=== PATIENT | male | born 1950 | race Caucasian/White ===

== ENCOUNTER 2023-09-20 21:38 | Emergency (ER) | payer OTHER, BC ==
[~2023-09-20] VITALS: Ht 182.9 cm; Wt 115.7 kg
[2023-09-20 21:40] VITALS: BP 170/73; PULSE 77; RESP 16; TEMP 98.1; O2SAT 98
[2023-09-20] MEDS ORDERED: LIDOCAINE/EPI MPF 2%1:200000 10 ML VIAL INJ ONE (21:59)
[2023-09-20] MEDS: LIDOCAINE 2% 1000 MG/50 ML VIAL INJ ONE (22:12)
[2023-09-20 23:12] VITALS: BP 136/71; PULSE 71; RESP 18; TEMP 97.8; O2SAT 98
== END 2023-09-20 23:12 | disposition home or self-care (01) ==
LOC: MED 21:38
DX: S01.01XA Laceration without foreign body of scalp, initial encounter (principal); F10.129 Alcohol abuse with intoxication, unspecified; S09.90XA Unspecified injury of head, initial encounter; I10 Essential (primary) hypertension; E78.00 Pure hypercholesterolemia, unspecified; F41.9 Anxiety disorder, unspecified; Y90.9 Presence of alcohol in blood, level not specified; W18.39XA Other fall on same level, initial encounter; Y92.89 Other specified places as the place of occurrence of the external cause; Y93.89 Activity, other specified; Y99.8 Other external cause status
CPT/HCPCS: 12002; 70450; 99284; J2001